=== PATIENT | female | born 1995 | race Caucasian/White ===

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

== ENCOUNTER 2018-04-24 22:47 | Emergency (ER) | payer MEDICAID ==
[~2018-04-24] VITALS: Ht 170.2 cm; Wt 80.7 kg
[2018-04-24 23:20] VITALS: BP_SYST 127
[2018-04-24] MEDS ORDERED: NACL 0.9% 1,000 ML IV ONE (23:41)
[2018-04-24] MEDS ORDERED: KETOROLAC TROMETHAMINE 30 MG VIAL IVP ONE (23:45)
[2018-04-24] MEDS ORDERED: ONDANSETRON HCL 4 MG/2 ML VIAL IVP ONE (23:45)
[2018-04-25 00:22] LABS: CREATININE 0.61 mg/dL (0.55-1.30); POTASSIUM 3.5 mmol/L (3.5-5.1)
[2018-04-25 00:23] LABS: BASOPHILS # (AUTO) 0.2 K/uL (0.0-0.2); BASOPHILS % (AUTO) 1.1 % (0.0-2.0); EOSINOPHILS # (AUTO) 0.2 K/uL (0.0-0.4); EOSINOPHILS % (AUTO) 1.4 % (0.0-4.0); HEMATOCRIT 40.3 % (36-48); HEMOGLOBIN 13.4 g/dL (12.0-16.0); LYMPHOCYTES % (AUTO) 14.2 % (20.5-51.5); MEAN CORPUSCULAR HEMOGLOBIN 28 pg (27-31); MEAN CORPUSCULAR HGB CONC 33 % (32-36); MEAN CORPUSCULAR VOLUME 83 fL (79.0-98.0); MONOCYTES # (AUTO) 0.8 K/uL (0.0-1.0); MONOCYTES % (AUTO) 5.8 % (1.7-9.3); NEUTROPHILS # (AUTO) 10.6 K/uL (1.8-7.7); NEUTROPHILS % (AUTO) 77.5 % (40.0-70.0); PLATELET COUNT (AUTO) 335 K/uL (130-430); RED BLOOD CELL COUNT(AUTO) 4.87 MIL/uL (4.2-6.2); RED CELL DISTRIBUTION WIDTH 13.8 % (9.0-15.0); WHITE BLOOD COUNT (AUTO) 13.8 K/uL (4.8-10.8)
[2018-04-25 00:27] LABS: ALBUMIN 3.7 g/dL (3.4-4.8); TOTAL BILIRUBIN 0.2 mg/dL (0.0-1.0)
[2018-04-25 00:35] VITALS: BP_SYST 120
== END 2018-04-25 00:35 | disposition home or self-care (01) ==
LOC: SED 22:47
DX: K57.90 Diverticulosis of intestine, part unspecified, without perforation or abscess without bleeding (principal)
CPT/HCPCS: 36415; 74176; 80053; 81002; 81025; 85025; 87040; 96361; 96374; 96375; 99284; J1885; J2405; J7030

== ENCOUNTER 2018-08-16 16:16 | Emergency (ER) | payer MEDICAID ==
[~2018-08-16] VITALS: Ht 170.2 cm; Wt 77.1 kg
[2018-08-16 16:16] VITALS: BP_SYST 130
[2018-08-16] MEDS ORDERED: NACL 0.9% 1,000 ML IV ONE (17:00)
[2018-08-16 17:07] LABS: BILIRUBIN,URINE NEGATIVE (NEGATIVE); BLOOD, URINE NEGATIVE (NEGATIVE); CLARITY/URINE CLEAR (CLEAR); COLOR,URINE YELLOW (YELLOW); GLUCOSE,URINE NEGATIVE (NEGATIVE); KETONES,URINE TRACE (NEGATIVE); LEUKOCYTE ESTERASE ,URINE NEGATIVE (NEGATIVE); NITRITE, URINE NEGATIVE (NEGATIVE); PROTEIN URINE NEGATIVE (NEGATIVE); UROBILINOGEN,URINE 0.2 (0.2-1.0)
[2018-08-16 17:29] LABS: BASOPHILS % (AUTO) 0.3 % (0.0-2.0); CALCIUM 9.6 mg/dL (8.4-11.0); CREATININE 0.6 mg/dL (0.55-1.30); EOSINOPHILS # (AUTO) 0.2 K/uL (0.0-0.4); EOSINOPHILS % (AUTO) 1.1 % (0.0-4.0); HEMATOCRIT 36.6 % (36-48); LYMPHOCYTES # (AUTO) 2.3 K/uL (1.0-5.5); LYMPHOCYTES % (AUTO) 15.9 % (20.5-51.5); MEAN CORPUSCULAR HEMOGLOBIN 28 pg (27-31); MEAN CORPUSCULAR HGB CONC 33 % (32-36); MEAN CORPUSCULAR VOLUME 83 fL (79.0-98.0); MONOCYTES # (AUTO) 1.1 K/uL (0.0-1.0); MONOCYTES % (AUTO) 7.4 % (1.7-9.3); NEUTROPHILS # (AUTO) 11.1 K/uL (1.8-7.7); NEUTROPHILS % (AUTO) 75.3 % (40.0-70.0); PLATELET COUNT (AUTO) 348 K/uL (130-430); POTASSIUM 3.5 mmol/L (3.5-5.1); PROTHROMBIN TIME 10.5 SECS (9.5-12.5); RED BLOOD CELL COUNT(AUTO) 4.38 MIL/uL (4.2-6.2); RED CELL DISTRIBUTION WIDTH 14.2 % (9.0-15.0); WHITE BLOOD COUNT (AUTO) 14.7 K/uL (4.8-10.8)
[2018-08-16 17:34] LABS: ALBUMIN 3.7 g/dL (3.4-4.8); TOTAL BILIRUBIN 0.3 mg/dL (0.0-1.0)
[2018-08-16] MEDS ORDERED: PIPERACILLIN/TAZO 3.375 GM in NS 50 ML IV ONE (19:45)
[2018-08-16] MEDS ORDERED: PIPERACILLIN/TAZOBACTAM 3.375 GM/VIAL (ZOSYN) IV ONE (19:50)
[2018-08-16 20:35] VITALS: BP_SYST 126
== END 2018-08-16 20:35 | disposition home or self-care (01) ==
LOC: SED 16:16
DX: I88.0 Nonspecific mesenteric lymphadenitis (principal)
CPT/HCPCS: 36415; 74176; 76830; 76857; 80053; 81003; 81025; 83605; 83690; 85025; 85610; 87040; 96365; 99284; J2543; J7030

== ENCOUNTER 2018-08-18 18:22 | Emergency (ER) | payer MEDICAID ==
[~2018-08-18] VITALS: Ht 170.2 cm; Wt 77.1 kg
[2018-08-18 18:34] VITALS: BP_SYST 159
[2018-08-18 18:41] VITALS: BP_SYST 136
[2018-08-18 19:14] LABS: BASOPHILS # (AUTO) 0.1 K/uL (0.0-0.2); BASOPHILS % (AUTO) 0.6 % (0.0-2.0); EOSINOPHILS # (AUTO) 0.5 K/uL (0.0-0.4); EOSINOPHILS % (AUTO) 4.2 % (0.0-4.0); HEMOGLOBIN 11.2 g/dL (12.0-16.0); LYMPHOCYTES # (AUTO) 2.8 K/uL (1.0-5.5); LYMPHOCYTES % (AUTO) 24.5 % (20.5-51.5); MEAN CORPUSCULAR HEMOGLOBIN 28 pg (27-31); MEAN CORPUSCULAR HGB CONC 33 % (32-36); MEAN CORPUSCULAR VOLUME 85 fL (79.0-98.0); MONOCYTES # (AUTO) 1.2 K/uL (0.0-1.0); MONOCYTES % (AUTO) 10.3 % (1.7-9.3); NEUTROPHILS # (AUTO) 6.9 K/uL (1.8-7.7); NEUTROPHILS % (AUTO) 60.4 % (40.0-70.0); PLATELET COUNT (AUTO) 311 K/uL (130-430); RED BLOOD CELL COUNT(AUTO) 4.02 MIL/uL (4.2-6.2); RED CELL DISTRIBUTION WIDTH 14.3 % (9.0-15.0); WHITE BLOOD COUNT (AUTO) 11.5 K/uL (4.8-10.8)
[2018-08-18 19:30] LABS: CALCIUM 9.1 mg/dL (8.4-11.0); CREATININE 0.52 mg/dL (0.55-1.30); POTASSIUM 3.9 mmol/L (3.5-5.1)
[2018-08-18 19:36] LABS: ALBUMIN 3.2 g/dL (3.4-4.8); TOTAL BILIRUBIN 0.2 mg/dL (0.0-1.0)
[2018-08-18 21:23] LABS: BILIRUBIN,URINE NEGATIVE (NEGATIVE); BLOOD, URINE NEGATIVE (NEGATIVE); COLOR,URINE YELLOW (YELLOW); GLUCOSE,URINE NEGATIVE (NEGATIVE); KETONES,URINE NEGATIVE (NEGATIVE); LEUKOCYTE ESTERASE ,URINE NEGATIVE (NEGATIVE); NITRITE, URINE NEGATIVE (NEGATIVE); PROTEIN URINE NEGATIVE (NEGATIVE)
[2018-08-18 21:59] LABS: CLARITY/URINE HAZY (CLEAR)
[2018-08-18 22:55] VITALS: BP_SYST 136
== END 2018-08-18 22:55 | disposition home or self-care (01) ==
LOC: SED 18:22
DX: N83.202 Unspecified ovarian cyst, left side (principal); N83.201 Unspecified ovarian cyst, right side
CPT/HCPCS: 36415; 76856-TC; 80053; 81003; 81025; 84702-TC; 85025; 99284

== ENCOUNTER 2018-09-16 12:09 | Emergency (ER) | payer MEDICAID ==
[~2018-09-16] VITALS: Ht 170.2 cm; Wt 77.1 kg
[2018-09-16 12:12] VITALS: BP_SYST 127
[2018-09-16 12:45] VITALS: BP_SYST 127
== END 2018-09-16 12:45 | disposition home or self-care (01) ==
LOC: SED 12:09
DX: S93.401A Sprain of unspecified ligament of right ankle, initial encounter (principal); R03.0 Elevated blood-pressure reading, without diagnosis of hypertension; X50.9XXA Other and unspecified overexertion or strenuous movements or postures, initial encounter; Y93.89 Activity, other specified; Y92.89 Other specified places as the place of occurrence of the external cause; Y99.8 Other external cause status
CPT/HCPCS: 99283

== ENCOUNTER 2019-01-29 06:30 | Emergency (ER) | payer MEDICAID ==
[~2019-01-29] VITALS: Ht 170.2 cm; Wt 74.8 kg
[2019-01-29 06:41] VITALS: BP_SYST 124
--- NOTE | 2019-01-29 06:46 | NUR ---
Pt placed to ER waiting room in stable condition. Urine specimen cup provided.
--- NOTE | 2019-01-29 06:50 | NUR ---
ER Dr. Tao at bedside examining patient.
--- NOTE | 2019-01-29 07:05 | NUR ---
Patient presented to ER with pelvic pain and urinary frequency. Patient A&ox4, afebrile, skin pink and warm, ambulatory to ER. patient C/O pelvic pain x1day, pain 6/10, denies n/v/d. Patient states pelvic pain & urinary frequency started yesterday, blood in urine started today.
[2019-01-29 07:45] LABS: BILIRUBIN,URINE 2+ (NEGATIVE); BLOOD, URINE 3+ (NEGATIVE); CLARITY/URINE CLOUDY (CLEAR); COLOR,URINE YELLOW (YELLOW); GLUCOSE,URINE NEGATIVE (NEGATIVE); KETONES,URINE NEGATIVE (NEGATIVE); LEUKOCYTE ESTERASE ,URINE TRACE (NEGATIVE); NITRITE, URINE POSITIVE (NEGATIVE); PH,URINE 6.5 (5.0-8.0); PROTEIN URINE 2+ (NEGATIVE)
[2019-01-29 07:49] LABS: BACTERIA,URINE MODERATE /HPF (None Seen); RBC,URINE >100 /HPF (0-3)
[2019-01-29 08:15] VITALS: BP_SYST 129
--- NOTE | 2019-01-29 08:15 | NUR ---
Patient given written and verbal discharge instructions and verbalizes understanding. ER MD discussed with patient the results and treatment provided. Patient in stable condition. ID arm band removed. Rx of Motrin & bactrim given. Patient educated on pain management and to follow up with PMD. Pain Scale 5/10 tolerable for patient . Opportunity for questions provided and answered. Medication side effect fact sheet provided.
== END 2019-01-29 08:15 | disposition home or self-care (01) ==
LOC: SED 06:30
DX: N30.80 Other cystitis without hematuria (principal)
CPT/HCPCS: 81000-TC; 81025; 87086; 99283

== ENCOUNTER 2021-02-28 22:55 | Emergency (ER) | payer MEDICAID ==
[~2021-02-28] VITALS: Ht 170.2 cm; Wt 83.9 kg
[2021-02-28 23:15] VITALS: BP_SYST 130
--- NOTE | 2021-02-28 23:15 | NUR ---
Patient to ER bed 4 to gown for evaluation. Side rails up.
--- NOTE | 2021-02-28 23:20 | NUR ---
Dr. Perez bedside for pt eval
--- NOTE | 2021-02-28 23:21 | NUR ---
Pt BIB family to ED C/O " possible sprain of L fingers " VSS no other Hx No s/s of acute distress Resting on gurney rails up
[2021-03-01 00:09] VITALS: BP_SYST 122
--- NOTE | 2021-03-01 00:09 | NUR ---
Patient given written and verbal discharge instructions and verbalizes understanding. ER MD discussed with patient the results and treatment provided. Patient in stable condition. ID arm band removed. NO RX given. Patient educated on pain management and to follow up with PMD. Pain Scale 0/10 Opportunity for questions provided and answered.
== END 2021-03-01 00:09 | disposition home or self-care (01) ==
LOC: SED 22:55
DX: M79.642 Pain in left hand (principal)
CPT/HCPCS: 99283